=== PATIENT | female | born 1985 | race Two or more races ===

== ENCOUNTER 2024-01-22 08:22 | Emergency (ER) | payer OTHER ==
[~2024-01-22] VITALS: Ht 157.5 cm; Wt 61.2 kg
[2024-01-22] MEDS ORDERED: NEURONTIN300 MG PO (08:36)
[2024-01-22] MEDS ORDERED: CLONAZEPAM0.5 MG PO (08:36)
[2024-01-22] MEDS ORDERED: RINGERS SOLUTION,LACTATED 1,000 ML IV STA (09:18)
[2024-01-22] MEDS ORDERED: FAMOtidine 10 MG/ML (4ML VIAL) IV STA (09:19)
[2024-01-22] MEDS ORDERED: FAMOTIDINE/PF 20 MG/2 ML VIAL ONE (09:29)
[2024-01-22] MEDS ORDERED: ONDANSETRON HCL 2 MG/ML VIAL ONE (09:29)
[2024-01-22] MEDS ORDERED: ONDANSETRON HCL 2 MG/ML VIAL IV ONE (09:30)
[2024-01-22 09:49] LABS: HEMATOCRIT 39.2 % (36.0-45.00); MEAN CELL VOLUME 79.7 fL (80.00-100.00); MEAN CORPUSCULAR HEMOGLOBIN 26.4 pg (27.00-32.0); MEAN CORPUSCULAR HGB CONC 33.1 g/dl (32.0-36.0); PLATELET COUNT 299 K/uL (150-450); RED BLOOD COUNT 4.92 M/uL (4.00-6.00); RED CELL DISTRIBUTION WIDTH 14.9 % (11.5-14.5)
[2024-01-22 10:07] LABS: PH,URINE 7.5 (5.0-8.0); URINE APPEARANCE Clear; URINE BILIRRUBIN Negative (NEGATIVE); URINE BLOOD Large; URINE COLOR Yellow; URINE GLUCOSE Negative (NEGATIVE); URINE KETONE Negative (NEGATIVE); URINE LEUKOCYTE Small; URINE NITRATE Negative; URINE PROTEIN Negative (NEGATIVE); URINE UROBILINOGEN 0.2 E.U./dl
[2024-01-22 10:08] LABS: URINE BACTERIA 1302.6 uL (0.0-1933); URINE RBC 4.2 uL (0.0-20.8)
[2024-01-22 10:30] LABS: CALCIUM 9.2 mg/dL (8.5-10.1); CREATININE SERUM 0.73 mg/dL (0.55-1.02); GFR 88.3; POTASSIUM 3.91 mEq/L (3.5-5.1)
== END 2024-01-22 13:56 | disposition home or self-care (01) ==
LOC: ER 08:23
PROVIDERS: General Practice
DX: K52.89 Other specified noninfective gastroenteritis and colitis (principal); E86.0 Dehydration